=== PATIENT | female | born 1980 | race Caucasian/White ===

== ENCOUNTER 2020-12-16 10:22 | Emergency (ER) | payer OTHER ==
[2020-12-17 07:07] LABS: SARS-CoV-2 NAA Not Detected (Not Detected)
== END 2020-12-16 10:40 | disposition home or self-care (01) ==
LOC: JVIRT 10:22
DX: Z20.822 Contact with and (suspected) exposure to COVID-19 (principal)
CPT/HCPCS: C9803; G2251-GT; Q3014-GT; U0003; U0005

== ENCOUNTER 2024-12-08 11:42 | Emergency (ER) | payer OTHER ==
[2024-12-08 11:57] VITALS: BP 122/75; PULSE 80; RESP 18; TEMP 98.4; BMI 29.6
[2024-12-08 12:47] LABS: BASOPHILS # 0.02 x10^3/uL (0.01-0.08); EOSINOPHIL % 0.7 % (0.7-5.8); EOSINOPHILS # 0.05 x10^3/uL (0.04-0.36); HEMATOCRIT 37.6 % (34.1-44.9); HEMOGLOBIN 12.5 g/dL (11.2-15.7); MCHC 33.2 g/dl (32.2-35.5); MEAN CELL VOLUME 92.4 fl (79.4-94.8); MEAN PLT VOLUME 9.6 fl (9.4-12.3); MONOCYTE # 0.35 x10^3/uL (0.24-0.86); PLATELET COUNT 333 x10^3/uL (182-369); RDW 12.4 % (12.2-17.1)
[2024-12-08 13:09] LABS: ALBUMIN 3.8 g/dl (3.4-5.0); ALK PHOS 44 U/L (45-117); ANION GAP 9 mmol/L (4-13); BILIRUBIN,TOTAL 0.4 mg/dl (0.2-1); CALCIUM 8.8 mg/dl (8.5-10.1); CHLORIDE 103 mmol/L (98-107); CO2 25 mmol/L (21-32); CREATININE 0.9 mg/dl (0.6-1.3); GLUCOSE,RANDOM 141 mg/dl (74-106); POTASSIUM 3.8 mmol/L (3.5-5.1); SGOT/AST 13 U/L (15-37); SGPT/ALT 10 U/L (7-52); SODIUM 137 mmol/L (136-145); TOT PROT 6.8 g/dl (6.4-8.2)
[2024-12-08 15:01] LABS: HCV DIAGNOSTIC IN-HOUSE W/RFLX NON-REACTIVE (NONREACTIVE)
[2024-12-08 15:02] LABS: HIV INTERPRETATION NEGATIVE (NEGATIVE)
== END 2024-12-08 13:31 | disposition home or self-care (01) ==
LOC: FER 11:42
DX: R07.89 Other chest pain (principal); M54.2 Cervicalgia; R00.2 Palpitations
CPT/HCPCS: 36415; 71045-TC-FY; 80053; 84484; 85025; 86803; 87389; 93005; 99285-25